=== PATIENT | female | born 1990 | race Caucasian/White ===

== ENCOUNTER 2016-06-29 16:08 | Emergency (ER) | payer SELFPAY ==
[2016-06-29 17:10] VITALS: BP 136/86
--- NOTE | 2016-06-29 17:44 | UC ---
Minor Trauma HPI - HPI Summary HPI Summary: 25 female presents with complaints of right thumb pain and tailbone pain after a fall that occurred yesterday while trying to walk down her steps at home. She states she was wearing flip flops in mud and thinks that was the culprit. Denies any other injuries of head, neck and back pain. Admits to swelling and bruising of right thumb. She is right handed. Is able to walk and bear weight. Standing is more comfortable. Has been taking Ibuprofen 600 mg with last dose being at 1:30 this afternoon and icing thumb which gives little relief in pain but does help with swelling. Movement makes both injuries worse. Did not hit head and no LOC. Denies PMHx. Denies numbness/tingling. - History of Current Complaint Chief Complaint: UCUpperExtremity Stated Complaint: RIGHT THUMB,TAILBONE/FALL Time Seen by Provider: 06/29/16 17:28 Hx Obtained From: Patient Hx Last Menstrual Period: 06/23/16 ?: No Onset/Duration: Sudden Onset, Lasting Days - yesterday Onset Of Pain: Immediate Severity Initially: Mild Severity Currently: Moderate Pain Intensity: 7 Pain Scale Used: 0-10 Numeric Mechanism Of Injury: Blunt Trauma, Fall From A Standing Position - down steps landing on ground Aggravating Factor(s): Movement, Other: - sitting Alleviating Factor(s): Ice, OTC Meds - ibuprofen Associated Signs And Symptoms: Positive: Ecchymosis - right thumb, Swelling Related History: Negative: Occupational Injury, Anticoagulants - Allergies/Home Medications Allergies/Adverse Reactions: Allergies Allergy/AdvReac Type Severity Reaction Status Date / Time beestings Allergy Severe hives all Uncoded 06/29/16 17:09 over/some swelling Home Medications: Home Medications Ibuprofen TAB* [Advil TAB*] 600 mg PO Q6H PRN 06/29/16 [History Confirmed ] PMH/Surg Hx/FS Hx/Imm Hx Endocrine History Of: Denies: Diabetes Cardiovascular History Of: Denies: Hypertension, Pacemaker/ICD Respiratory History Of: Reports: Asthma - CHILDHOOD ASTHMA - Surgical History Surgical History: None - Family History Known Family History: Positive: Hypertension, Diabetes - Social History Alcohol Use: None Substance Use Type: None Smoking Status (MU): Current Every Day Smoker Type: Cigarettes Amount Used/How Often: 1/2 PPD Length of Time of Smoking/Using Tobacco: 2 YRS Have You Smoked in the Last Year: Yes - Immunization History Most Recent Influenza Vaccination: NOT THIS PAST SEASON Review of Systems Constitutional: Negative Skin: Bruising - & edema of right thumb Eyes: Negative ENT: Negative Respiratory: Negative Cardiovascular: Negative Gastrointestinal: Negative Neurovascular: Negative Musculoskeletal: Arthralgia - tailbone, Decreased ROM, Edema - right thumb, Myalgia Neurological: Negative All Other Systems Reviewed And Are Negative: Yes Physical Exam Triage Information Reviewed: Yes Appearance: Well-Appearing, No Pain Distress, Well-Nourished, Obese Vital Signs: Initial Vital Signs Temp 97.9 F 06/29/16 17:02 Pulse 81 06/29/16 17:02 BP 136/86 06/29/16 17:02 Pulse Ox 99 06/29/16 17:02 Vital Signs Reviewed: Yes Eyes: Positive: Conjunctiva Clear, Other: - PERRLA, EOMI ENT: Positive: Normal ENT inspection, Hearing grossly normal Neck: Positive: Supple, Nontender Respiratory: Positive: Chest non-tender, Lungs clear, Normal breath sounds Cardiovascular: Positive: RRR, No Murmur, Pulses Normal - 2+ radial bilateral and pedal, Brisk Capillary Refill - <2 seconds Abdomen Description: Positive: Nontender, No Organomegaly, Soft Bowel Sounds: Positive: Present Musculoskeletal: Positive: ROM Intact - moves slowly, Strength Limited @ - limited strength of right thumb but is able. moves slowly, Edema @ - minimally edema noted of right thumb when compared to left. midl ecchymosis of base of right thumb noted, posteriorly., Other: - no ecchymosis or changes to tailbone, difficult to examine due to excess adipose Neurological Exam: Normal Neurological: Positive: Alert, Other: - sensation intact all extremities Skin: Positive: Other - mild ecchymosis of right posterior thumb noted. Diagnostics - Radiology right thumb Xray Interpretation: Positive (See Comments) - Questionable avulsion fracture at the right thumb interphalangeal joint as described above. Please correlate to the focality of the patient's pain. Radiology Interpretation Completed By: Radiologist sacrum/coccyx Xray Interpretation: No Acute Changes - Normal radiograph of the sacrum and coccyx. If the patient's symptoms persist, follow-up imaging is recommended. Radiology Interpretation Completed By: Radiologist Minor Trauma Course/Dx - Course Course Of Treatment: patient was not due for another dose of ibuprofen at this time. told to continue 6-800 mg every 6-8hours for the next couple of days. X- rays of sacrum/coccyx and right thumb obtained. X-rays were read by Dr Ousmane Allred and myself as normal exams. Patient d/c before radiologist report, called to discuss findings of radiologist report after visit. Patient was spoke to on telephone and is aware that a possible fracture of right thumb per radiologist. Coccyx negative, right thumb questionable small avulsion fracture although unknown for certain, patient's pain was below area of possible interphalangeal fracture on x-ray. Given thumb spica for right thumb to wear for 4-6 weeks as symptoms persist. Follow up with ortho if symptoms persist or worsen within 2 weeks. Continue ice and ibuprofen. Rest both. Donut pillow was recommended to help with pain with sitting. Pain management given. Follow up with PCP. Return if worsening signs and symptoms occur or symptoms persist. - Differential Dx/Diagnosis Differential Diagnosis/HQI/PQRI: Contusion(s), Fracture, Dislocation, Sprain, Strain Provider Diagnoses: right thumb fracture vs sprain, contusion of coccyx - Physician Notifications Discussed Patient Care With: Dr Allred Discharge - Discharge Plan Condition: Stable Disposition: HOME Prescriptions: HYDROcodone/ACETAMIN 5-325 MG* [Ashby 5-325 TAB*] 1 tab PO Q4H PRN #8 tab MDD 3 PRN Reason: Pain - Moderate To Severe Patient Education Materials: Coccyx Injury (ED), Finger Fracture (GEN) Forms: *Work Release Referrals: [facility] [place] [facility] [Outside] Sean Wise MD [Medical Doctor] - Additional Instructions: Continue taking 6-800mg of Ibuprofen every 6-8 hours with food for the next 3-5 days. Take prescribed pain medication to help at night time to reduce pain. OR try lidoderm patch over the counter, do not use both at once. Ice multiple times daily to help with inflammation and pain. Rest your thumb and wear brace for the next 4-6 weeks. Use a donut pillow to sit on when sitting down to take pressure of tailbone. Rest and try laying on firm mattress. Call and make an appointment to follow up with orthopedics in 2-3 weeks to ensure proper healing. Follow up with PCP. If symptoms worsen or do not improve such as numbness/tingling, bladder/bowel incontinence, unable to ambulate, please seek medical attention.
--- NOTE | 2016-06-29 18:16 | RAD ---
Indication: Sacrococcygeal pain after a fall the previous day. Comparison: None. Technique: AP and lateral views sacrum and coccyx. Report: The visualized bones of the sacrum and coccyx are well-corticated and properly aligned. The joint spaces are adequately maintained. There is no radiographically apparent acute fracture or dislocation. IMPRESSION: Normal radiograph of the sacrum and coccyx. If the patient's symptoms persist, follow-up imaging is recommended.
--- NOTE | 2016-06-29 18:18 | RAD ---
INDICATION: Right thumb pain after a fall COMPARISON: None TECHNIQUE: 3 views of the right thumb were obtained. FINDINGS: On the lateral view of the right thumb there is faint bony density overlying the palmar aspect of the interphalangeal joint. No definite donor site is visualized. Otherwise the bones are normal alignment. Joint spaces appear maintained. IMPRESSION: Questionable avulsion fracture at the right thumb interphalangeal joint as described above. Please correlate to the focality of the patient's pain.
== END 2016-06-29 18:13 | disposition home or self-care (01) ==
LOC: UCCORT 16:08
DX: S30.0XXA Contusion of lower back and pelvis, initial encounter (principal); S69.91XA Unspecified injury of right wrist, hand and finger(s), initial encounter; W10.9XXA Fall (on) (from) unspecified stairs and steps, initial encounter; Y93.89 Activity, other specified; Y92.009 Unspecified place in unspecified non-institutional (private) residence as the place of occurrence of the external cause; J45.909 Unspecified asthma, uncomplicated; Z91.030 Bee allergy status; F17.210 Nicotine dependence, cigarettes, uncomplicated
CPT/HCPCS: 72220; 99212; G0463

== ENCOUNTER 2016-08-30 14:42 | Emergency (ER) | payer BC ==
[2016-08-30 14:52] VITALS: BP 139/73
--- NOTE | 2016-08-30 15:27 | UC ---
Back Pain HPI - HPI Summary HPI Summary: patient slipped and fell back, landing on the upper back against a window sill, burning and numbness over the upper thorasic spine, previous left shoulder injury aggrevated by new injury, limited abd of leftshoulder - History of Current Complaint Chief Complaint: UCBackPain Stated Complaint: NECK PAIN (FALL) Time Seen by Provider: 08/30/16 15:16 Hx Obtained From: Patient Hx Last Menstrual Period: irreg ?: No Onset/Duration: Sudden Onset, Lasting Hours Timing: Constant Severity Initially: Severe Severity Currently: Severe Back Pain: Is Discrete @ - over T1, radiates to the left arm Character: Spasmodic, Burning Aggravating: Movement Alleviating: Rest Associated Signs And Symptoms: Positive: Swelling - Allergies/Home Medications Allergies/Adverse Reactions: Allergies Allergy/AdvReac Type Severity Reaction Status Date / Time beestings Allergy Severe hives all Uncoded 08/30/16 14:51 over/some swelling Home Medications: Home Medications Diclofenac Sodium EC TAB* [Voltaren EC TAB*] 75 mg PO BID 08/30/16 [History Confirmed 08/30/16] PMH/Surg Hx/FS Hx/Imm Hx Previously Healthy: Yes - Surgical History Surgical History: None - Family History Known Family History: Positive: Hypertension, Diabetes - Social History Alcohol Use: None Substance Use Type: None Smoking Status (MU): Current Every Day Smoker Type: Cigarettes Amount Used/How Often: 1/2 PPD Length of Time of Smoking/Using Tobacco: 2 YRS Have You Smoked in the Last Year: Yes - Immunization History Most Recent Influenza Vaccination: NOT THIS PAST SEASON Review of Systems Constitutional: Negative Skin: Negative Eyes: Negative ENT: Negative Respiratory: Negative Cardiovascular: Negative Gastrointestinal: Negative Genitourinary: Negative Motor: Negative Neurovascular: Negative Musculoskeletal: Arthralgia, Decreased ROM, Edema, Myalgia Neurological: Negative Psychological: Negative All Other Systems Reviewed And Are Negative: Yes Physical Exam Triage Information Reviewed: Yes Appearance: Well-Appearing, Well-Nourished, Pain Distress Vital Signs: Initial Vital Signs Temp 98.0 F 08/30/16 14:48 Pulse 93 08/30/16 14:48 Resp 16 08/30/16 14:48 BP 139/73 08/30/16 14:48 Pulse Ox 100 08/30/16 14:48 Vital Signs Reviewed: Yes Eye Exam: Normal ENT: Positive: Hearing grossly normal, Pharynx normal, TMs normal Dental Exam: Normal Neck exam: Normal Neck: Positive: Supple, Nontender, No Lymphadenopathy Respiratory Exam: Normal Respiratory: Positive: Chest non-tender, Lungs clear, Normal breath sounds Cardiovascular Exam: Normal Cardiovascular: Positive: RRR, No Murmur, Pulses Normal Abdominal Exam: Normal Abdomen Description: Positive: Nontender, No Organomegaly, Soft Bowel Sounds: Positive: Present Musculoskeletal: Positive: Strength Limited @ - right delt, ROM Limited @ - left shoulder, Edema @ - over the t1-t2 region Neurological Exam: Normal Psychological Exam: Normal Skin Exam: Normal Back Pain Course/Dx - Course Course Of Treatment: hx obtained, exam performed ,meds reviewed, Urine HCG obtaine, xray ordered. ice bag applied - Differential Dx/Diagnosis Provider Diagnoses: contusion to upper back Discharge - Discharge Plan Condition: Stable Disposition: HOME Patient Education Materials: Contusion in Adults (ED) Additional Instructions: 1. heat or ice which ever feels better. 2. continue with your anti inflammatories 3. follow up as needed.
--- NOTE | 2016-08-30 16:25 | RAD ---
HISTORY: Fall, T1 pain COMPARISONS: None VIEWS: 4, Frontal and lateral views of the thoracic spine, and lateral views of the cervical spine. FINDINGS: ALIGNMENT: The alignment is normal. VERTEBRAL BODIES: The vertebral body heights are normal. The interpedicular distances are normal. There is mild anterolateral marginal osteophyte formation. JOINTS: Unremarkable. INTERVERTEBRAL DISCS: There is mild diffuse loss of intervertebral disc height. SOFT TISSUE: Unremarkable OTHER: The visualized lungs are clear. IMPRESSION: MILD DEGENERATIVE DISC DISEASE. NO ACUTE OSSEOUS INJURY
== END 2016-08-30 16:40 | disposition home or self-care (01) ==
LOC: UCCORT 14:42
DX: S20.229A Contusion of unspecified back wall of thorax, initial encounter (principal); W01.0XXA Fall on same level from slipping, tripping and stumbling without subsequent striking against object, initial encounter; Y93.9 Activity, unspecified; Y92.9 Unspecified place or not applicable; M54.2 Cervicalgia; Z91.030 Bee allergy status; F17.210 Nicotine dependence, cigarettes, uncomplicated; Z32.02 Encounter for pregnancy test, result negative
CPT/HCPCS: 72070; 84702; 99212; G0463

== ENCOUNTER 2017-03-12 14:40 | Emergency (ER) | payer BC ==
[2017-03-12] MEDS ORDERED: Acetaminophen TAB* 325 MG PO ONE (15:06)
[2017-03-12 15:09] VITALS: BP 135/70
--- NOTE | 2017-03-12 15:26 | UC ---
Shoulder Pain HPI - HPI Summary HPI Summary: 26 year old female with shoulder pain . slipped and fell yesterday while leaving work. she has had pain in the left shoulder and left pointer finger. she slipped on ice. did not hit head. No LOC. No numbness in the arm. No neck pain. No DOOLEY. No wrist or elbow pain. [ End ] - History of Current Complaint Chief Complaint: UCUpperExtremity Stated Complaint: S/P FALL LEFT INDEX FINGER/SHOULDER Time Seen by Provider: 03/12/17 15:04 Hx Obtained From: Patient Hx Last Menstrual Period: irreg ?: No Onset/Duration: Sudden Onset Timing: Intermittent Episode Lasting Severity Initially: Moderate Severity Currently: Moderate Character: Aching, Spasmodic, Stiffness Aggravating Factor(s): Movement, Lifting - Allergies/Home Medications Allergies/Adverse Reactions: Allergies Allergy/AdvReac Type Severity Reaction Status Date / Time beestings Allergy Severe hives all Uncoded 03/12/17 15:11 over/some swelling Home Medications: Home Medications Ibuprofen TAB* [Motrin TAB* 800 MG] 800 mg PO Q6H PRN 03/12/17 [History Confirmed 03/12/17] PMH/Surg Hx/FS Hx/Imm Hx Previously Healthy: Yes - Surgical History Surgical History: None - Family History Known Family History: Positive: Hypertension, Diabetes - Social History Occupation: Employed Full-time Alcohol Use: None Substance Use Type: None Smoking Status (MU): Current Every Day Smoker Type: Cigarettes Amount Used/How Often: 1/2 PPD Length of Time of Smoking/Using Tobacco: 2 YRS Have You Smoked in the Last Year: Yes - Immunization History Most Recent Influenza Vaccination: NOT THIS PAST SEASON Review of Systems Musculoskeletal: Arthralgia, Decreased ROM Is Patient Immunocompromised?: No All Other Systems Reviewed And Are Negative: Yes Physical Exam Triage Information Reviewed: Yes Appearance: Well-Appearing, No Pain Distress, Well-Nourished Vital Signs: Initial Vital Signs Temp 97.6 F 03/12/17 15:06 Pulse 84 03/12/17 15:06 Resp 16 03/12/17 15:06 BP 135/70 03/12/17 15:06 Vital Signs Reviewed: Yes Eye Exam: Normal ENT Exam: Normal Dental Exam: Normal Neck exam: Normal Respiratory Exam: Normal Cardiovascular Exam: Normal Musculoskeletal Exam: Normal Musculoskeletal: Positive: Other: - tendernerss to palpation of the left shoulder anteriorly. no SP tenderness. No step offs. No elbow or wrist pain. Left index finger tenderness to palpation at MCP. Cap refill < 3 sec. peripheral pulses intact. Left shoulder with FROM. strength 5/5 and senstaion intact Neurological Exam: Normal Psychological Exam: Normal Skin Exam: Normal Diagnostics - Laboratory Diagnostic Studies Completed/Ordered: IMPRESSION: NEGATIVE EXAMINATION. Shoulder Course/Dx - Course Course Of Treatment: Conservative treatment and if not improved f/u with Ortho . - Differential Dx/Diagnosis Differential Diagnosis/HQI/PQRI: Contusion, Dislocation, Fracture (Closed), Rotator Cuff Injury, Sprain, Strain Provider Diagnoses: Left shoulder and left index finger sprain Discharge - Discharge Plan Condition: Good Disposition: HOME Patient Education Materials: Shoulder Sprain (ED) Forms: *Work Release Referrals: Sean Wise MD [Medical Doctor] - If Needed (1 week )
--- NOTE | 2017-03-12 16:14 | RAD ---
INDICATION: Right second digit injury COMPARISON: None TECHNIQUE: AP, lateral, and oblique views were obtained. FINDINGS: The bony structures, joint spaces, and soft tissues are normal for age. IMPRESSION: NEGATIVE EXAMINATION.
--- NOTE | 2017-03-12 16:16 | RAD ---
INDICATION: Left shoulder injury COMPARISON: None TECHNIQUE: Routine frontal, Y and axial views were obtained. FINDINGS: The bony structures, joint spaces, and soft tissues are normal for age. IMPRESSION: NEGATIVE EXAMINATION
== END 2017-03-12 16:31 | disposition home or self-care (01) ==
LOC: UCCORT 14:40
DX: S43.402A Unspecified sprain of left shoulder joint, initial encounter (principal); S63.611A Unspecified sprain of left index finger, initial encounter; W00.0XXA Fall on same level due to ice and snow, initial encounter; Y93.89 Activity, other specified; Y92.9 Unspecified place or not applicable; Y99.0 Civilian activity done for income or pay; Z91.030 Bee allergy status; F17.210 Nicotine dependence, cigarettes, uncomplicated
CPT/HCPCS: 73140; 99212; A9270-GY; G0463

== ENCOUNTER 2017-03-19 14:39 | Emergency (ER) | payer BC ==
[2017-03-19 15:11] VITALS: BP 149/80
--- NOTE | 2017-03-19 15:23 | UC ---
Respiratory Complaint HPI - HPI Summary HPI Summary: 26F presents with fever, sinus congestion, body aches, and cough for two days. She states it started with a cough. She admits to chest tightness when she coughs. She is a smoker. She denies any history of COPD or asthma. She has not taken anything for her fever. She denies any abdominal pain. She denies any nausea or vomiting. - History of Current Complaint Chief Complaint: UCGeneralIllness Stated Complaint: CHILLS FEVER BODYACHES Time Seen by Provider: 03/19/17 15:07 Hx Last Menstrual Period: irreg Pain Intensity: 4 - Allergies/Home Medications Allergies/Adverse Reactions: Allergies Allergy/AdvReac Type Severity Reaction Status Date / Time beestings Allergy Severe hives all Uncoded 03/19/17 15:11 over/some swelling PMH/Surg Hx/FS Hx/Imm Hx Endocrine History: Other Other Endocrine History: no DM Cardiovascular History: Other Other Cardiovascular History: no HTN - Surgical History Surgical History: None - Family History Known Family History: Positive: Hypertension, Diabetes - Social History Alcohol Use: None Substance Use Type: None Smoking Status (MU): Current Every Day Smoker Type: Cigarettes Amount Used/How Often: 1/2 PPD Length of Time of Smoking/Using Tobacco: 2 YRS Have You Smoked in the Last Year: Yes - Immunization History Most Recent Influenza Vaccination: NOT THIS PAST SEASON Review of Systems Constitutional: Fever ENT: Sore Throat Respiratory: Shortness Of Breath, Cough Cardiovascular: Chest Pain - tightness All Other Systems Reviewed And Are Negative: Yes Physical Exam Triage Information Reviewed: Yes Appearance: Well-Appearing, Ill-Appearing Vital Signs: Initial Vital Signs Temp 97.7 F 03/19/17 15:06 Pulse 101 03/19/17 15:06 Resp 16 03/19/17 15:06 BP 149/80 03/19/17 15:06 Pulse Ox 97 03/19/17 15:06 Vital Signs Reviewed: Yes Eyes: Positive: Conjunctiva Clear ENT: Positive: Normal ENT inspection, Pharynx normal, TMs normal Neck: Positive: Supple, Nontender, No Lymphadenopathy Respiratory: Positive: Lungs clear, Normal breath sounds Cardiovascular: Positive: RRR Abdomen Description: Positive: Nontender, Soft Bowel Sounds: Positive: Present Musculoskeletal Exam: Normal Neurological Exam: Normal Psychological Exam: Normal Skin Exam: Normal UC Diagnostic Evaluation - Laboratory O2 Sat by Pulse Oximetry: 97 Respiratory Course/Dx - Course Course Of Treatment: 26F presents with fever, sinus congestion, body aches, and cough for two days. She states it started with a cough. She admits to chest tightness when she coughs. She is a smoker. She denies any history of COPD or asthma. She has not taken anything for her fever. She denies any abdominal pain. She denies any nausea or vomiting. on exam pharynx normal. lungs CTA. egophony neg. flu pos. will have establish care with primary to follow up about blood pressure but could be related to illness at this time. will treat with tamiflu. patient understand and agrees with plan. - Differential Dx/Diagnosis Differential Diagnosis/HQI/PQRI: Influenza, Lower Resp Infection, Other - pneumonia Provider Diagnoses: influenza, elevated blood pressure Discharge - Discharge Plan Condition: Good Disposition: HOME Prescriptions: Ondansetron ODT TAB* [Zofran 4 MG Odt TAB*] 4 mg PO Q6H PRN #10 tab.odt PRN Reason: Nausea Oseltamivir CAP* [Tamiflu CAP*] 75 mg PO BID #10 cap Patient Education Materials: Influenza (ED) Forms: *Work Release Referrals: [facility] [place] [facility] [Outside] Additional Instructions: Take tamiflu twice a a day for 5 day Take zofran every 6 hours as needed for nausea Take Tylenol and ibuprofen for muscle aches and fever every 6 hours Saline rinse can be used multiple times a day for nasal congestion Use humidifier in room or place bowls of warm water around room for cough Try to drink fluids every hour and eat a small snack every 3 hours Establish care with primary to follow up Return to ED if develop any new or worsening symptoms
== END 2017-03-19 15:50 | disposition home or self-care (01) ==
LOC: UCCORT 14:39
DX: J11.1 Influenza due to unidentified influenza virus with other respiratory manifestations (principal); R03.0 Elevated blood-pressure reading, without diagnosis of hypertension; Z91.030 Bee allergy status; F17.210 Nicotine dependence, cigarettes, uncomplicated
CPT/HCPCS: 87502; 99212; G0463